=== PATIENT | male | born 1940 | race Caucasian/White ===

== ENCOUNTER 2021-05-27 16:08 | Inpatient (IN) | payer MEDICARE ==
[2021-05-27] MEDS ORDERED: Communication Order-Pharmacy FS SCH (18:03)
[2021-05-27 18:38] VITALS: BMI 25.2
[2021-05-27] MEDS ORDERED: Atorvastatin Calcium 40 MG TAB PO SCH (21:00)
[2021-05-27] MEDS ORDERED: Acetaminophen 325 MG TAB PO PRN (21:03)
[2021-05-27] MEDS ORDERED: Ondansetron PF 4 MG/2 ML Vial IVP PRN (21:03)
[2021-05-27] MEDS ORDERED: HumaLOG 300 UNITS/3 ML VIAL SC PRN ×2 (21:14→22:53)
[2021-05-27] MEDS ORDERED: Dextrose 5% in Water 1,000 ML IV PRN (21:14)
[2021-05-27] MEDS ORDERED: Dextrose 50% Abboject 50 ML SYRINGE SLOW IVP PRN (21:14)
[2021-05-27] MEDS ORDERED: Spironolactone 25 MG TAB PO SCH (21:30)
[2021-05-27] MEDS ORDERED: Carvedilol 3.125 MG TAB PO SCH (22:00)
[2021-05-27 22:38] LABS: SARS-CoV-2 NAA Rapid Test Not Detected (NotDetected)
[2021-05-28] MEDS ORDERED: CEFAZOLIN 2 GM in Premix Bag 1 BAG IVPB SCH (03:00)
[2021-05-28 04:54] LABS: #Eosinphils 0.1 thou/uL (0.0-0.7); #Lymphocytes 1.6 thou/uL (1.20-3.40); #Monocytes 0.9 thou/uL (0.11-0.59); #Neutrophils 5.5 thou/uL (1.40-6.50); %Eosinophils 1.7 % (0.0-10.0); %Lymphocytes 19.8 % (21.0-51.0); %Monocytes 10.7 % (0.0-10.0); %Neutrophils 67.8 % (42.0-75.0); Hemoglobin 13.2 g/dL (14.0-18.0); Mean Corpuscular HGB CONC 32.4 g/dL (32.0-36.0); Mean Corpuscular Hemoglobin 27.6 pg (27.0-31.0); Mean Corpuscular Volume 85.3 fL (78.0-98.0); Mean Platelet Volume 7.9 fL (7.4-10.4); Platelet Count 258 thou/uL (130-400); RBC Distribution Width 14.9 % (11.5-14.5); White Blood Cell (WBC) Count 8.1 thou/uL (4.8-10.8)
[2021-05-28 05:08] LABS: Anion Gap 14 mmol/L (10-20); BUN (Urea Nitrogen) 26 mg/dL (8.4-25.7); Calc. Creatinine Clearance 56 mL/min (70-130); Carbon Dioxide 28 mmol/L (23-31); Chloride 102 mmol/L (98-107); Glucose 191 mg/dL (83-110); Potassium 3.7 mmol/L (3.5-5.1); Sodium 140 mmol/L (136-145)
[2021-05-28] MEDS ORDERED: Carvedilol 3.125 MG TAB PO SCH ×2 (08:00)
[2021-05-28] MEDS ORDERED: Furosemide 40 MG/4 ML VIAL SLOW IVP SCH (09:00)
[2021-05-28] MEDS ORDERED: Empagliflozin 10 MG TAB PO SCH (09:00)
[2021-05-28] MEDS ORDERED: Albumin 5% 500 ML ONE ×2 (10:22→13:45)
[2021-05-28] MEDS ORDERED: Heparin 10,000 UNITS/1 ML VIAL 30,000 UNITS in Sodium Chloride 0.9% 1,000 ML FS SCH (10:30)
[2021-05-28] MEDS ORDERED: Sodium Chloride 0.9% 50 ML ONE (10:50)
[2021-05-28] MEDS ORDERED: ceFAZolin 2 GM/DEX 5% 100 ML BAG ONE (11:11)
[2021-05-28] MEDS ORDERED: Ketamine 50 MG/ML (10ML VIAL) ONE (11:11)
[2021-05-28] MEDS ORDERED: Midazolam HCl 5 mg/5 ml Vial ONE ×2 (11:26→13:16)
[2021-05-28] MEDS ORDERED: Fentanyl 250 MCG/5 ML VIAL ONE (11:26)
[2021-05-28] MEDS ORDERED: Heparin 30,000 units/30 ml VIAL ONE (11:41)
[2021-05-28] MEDS ORDERED: Magnesium Sulfate 1 GM/2 ML VIAL ONE (11:41)
[2021-05-28] MEDS ORDERED: Aminocaproic Acid 5 GM/20 ML VIAL ONE (11:41)
[2021-05-28] MEDS ORDERED: Nitroglycerin 50 MG/250 ML BOT ONE (11:41)
[2021-05-28] MEDS ORDERED: Lidocaine 2% PF 100 mg/5 ml Syringe ONE (11:41)
[2021-05-28] MEDS ORDERED: Heparin 5,000 UNITS/ML VIAL ONE (11:41)
[2021-05-28] MEDS ORDERED: Calcium Chloride 1 GM/10 ML Abboject SYRINGE ONE (11:41)
[2021-05-28] MEDS ORDERED: Mannitol 12.5 GM/50 ML ONE (11:41)
[2021-05-28] MEDS ORDERED: Sodium Bicarb 50 MEQ/50 ML Abboject 8.4% SYRINGE ONE (11:41)
[2021-05-28] MEDS ORDERED: Thrombin 5000 UNITS/5 ML VIAL ONE (11:41)
[2021-05-28] MEDS ORDERED: PROPOFOL 200 MG/20 ML VIAL ONE (11:41)
[2021-05-28] MEDS ORDERED: Cardioplegic Soln 1,000 ML BAG ONE (11:41)
[2021-05-28] MEDS ORDERED: Protamine Sulfate 250 MG/25 ML VIAL ONE (11:41)
[2021-05-28] MEDS ORDERED: Papaverine 60 MG/2 ML VIAL ONE (11:41)
[2021-05-28] MEDS ORDERED: Vecuronium 10 MG VIAL ONE (11:41)
[2021-05-28] MEDS ORDERED: Potassium Chloride 60 MEQ/30 ML VIAL ONE (11:41)
[2021-05-28] MEDS ORDERED: Insulin Regular 300 UNITS/3 ML VIAL ONE (12:07)
[2021-05-28] MEDS ORDERED: Iopamidol 0 ML ONE (12:39)
[2021-05-28] MEDS ORDERED: PHENYLEPHRINE-NS 100 MCG/ML 10 ML SYRINGE ONE (13:16)
[2021-05-28] MEDS ORDERED: Guaifenesin DM 100-10/5 ML UDCUP PO PRN (15:40)
[2021-05-28] MEDS ORDERED: Mag-Al 1200 mg/1200 mg/30 ML UDCUP PO PRN (15:40)
[2021-05-28] MEDS ORDERED: Hetastarch 6% 500 ML 500 ML IVPB PRN (15:40)
[2021-05-28] MEDS ORDERED: Bisacodyl 10 MG SUPP PR PRN (15:40)
[2021-05-28] MEDS ORDERED: Nitroglycerin 50 MG/250 ML BOT 250 ML IVPB PRN (15:40)
[2021-05-28] MEDS ORDERED: Bisacodyl 5 MG TAB PO PRN (15:40)
[2021-05-28] MEDS ORDERED: niCARdipine 25 MG in Sodium Chloride 0.9% 250 ML 240 ML IVPB PRN (15:40)
[2021-05-28] MEDS ORDERED: Acetaminophen 325 MG TAB PO PRN (15:40)
[2021-05-28] MEDS ORDERED: Fentanyl 100 MCG/2 ML VIAL SLOW IVP PRN (15:40)
[2021-05-28] MEDS ORDERED: traMADol HCl 50 MG TAB PO PRN (15:40)
[2021-05-28] MEDS ORDERED: hydrALAZINE 20 MG/ML VIAL SLOW IVP PRN (15:40)
[2021-05-28] MEDS ORDERED: Potassium Chloride 20 MEQ/100 ML PREMIX BAG IVPB PRN (15:40)
[2021-05-28] MEDS ORDERED: Post-Op Insulin Drip Protocol IVPB ONE (15:40)
[2021-05-28] MEDS ORDERED: DOPamine 400 MG/D5W 250 ML 250 ML IVPB PRN (15:40)
[2021-05-28] MEDS ORDERED: Ondansetron PF 4 MG/2 ML Vial IVP PRN (15:40)
[2021-05-28] MEDS ORDERED: HUMULIN R 100 UNITS in Sodium Chloride 0.9% 100 ML IVPB SCH (15:45)
[2021-05-28 15:46] LABS: Actual Bicarbonate (HCO3a) 21.8 mEq/L (22-28); Base Excess (BEa) -1.9 mEq/L (-2.0 to +3.0); CO2 Tension 33.5 mmHg (35.0-45.0); Calcium, Ionized (arterial) 1.15 mmol/L (1.12-1.30); Carboxyhemoglobin (COHb) 0.3 gm% (0.0-3.0); Hemoglobin (Hb) 12.1 g/dL (14.0-18.0); O2 Tension (PaO2), arterial 95.2 mmHg (> 60.0); Potassium - ABG Lab 3.73 mmol/L (3.70-5.30); Puncture Site Arterial Line; pH, Arterial 7.43 (7.35-7.45)
[2021-05-28 15:47] LABS: ALV-art Gradient 219.425 mmHg (0-20)
[2021-05-28 15:53] LABS: #Eosinphils 0.1 thou/uL (0.0-0.7); #Lymphocytes 0.9 thou/uL (1.20-3.40); #Neutrophils 14.5 thou/uL (1.40-6.50); %Basophils 0.1 % (0.0-1.0); %Eosinophils 0.3 % (0.0-10.0); %Lymphocytes 5.3 % (21.0-51.0); %Monocytes 5.9 % (0.0-10.0); %Neutrophils 88.4 % (42.0-75.0); Hemoglobin 11.6 g/dL (14.0-18.0); Mean Corpuscular HGB CONC 32.3 g/dL (32.0-36.0); Mean Corpuscular Hemoglobin 27.5 pg (27.0-31.0); Mean Platelet Volume 7.9 fL (7.4-10.4); Platelet Count 184 thou/uL (130-400); RBC Distribution Width 14.7 % (11.5-14.5); Red Blood Cell (RBC) Count 4.21 mill/uL (4.70-6.10); White Blood Cell (WBC) Count 16.4 thou/uL (4.8-10.8)
[2021-05-28 16:05] LABS: INR-International Normal Ratio 1.4; Prothrombin Time 17.3 sec (12.0-14.7)
[2021-05-28 16:06] LABS: PTT 36.5 sec (22.9-36.1)
[2021-05-28] MEDS ORDERED: Dextrose 5% in Water 1,000 ML IV PRN (16:15)
[2021-05-28] MEDS ORDERED: Dextrose 50% Abboject 50 ML SYRINGE SLOW IVP PRN (16:15)
[2021-05-28] MEDS ORDERED: Insulin Regular 300 UNITS/3 ML VIAL SC PRN (16:15)
[2021-05-28 16:19] LABS: Anion Gap 12 mmol/L (10-20); BUN (Urea Nitrogen) 21 mg/dL (8.4-25.7); Calc. Creatinine Clearance 66 mL/min (70-130); Calcium 7.9 mg/dL (7.8-10.44); Carbon Dioxide 23 mmol/L (23-31); Chloride 110 mmol/L (98-107); Glucose 168 mg/dL (83-110); Potassium 3.8 mmol/L (3.5-5.1); Sodium 141 mmol/L (136-145)
[2021-05-28 16:21] LABS: Potassium 3.7 mmol/L (3.5-5.1)
[2021-05-28] MEDS: Lactated Ringer's 1,000 ML IV SCH (16:24)
[2021-05-28] MEDS: Morphine 4 MG/ML VIAL SLOW IVP PRN ×2 (16:25→21:30)
[2021-05-28] MEDS ORDERED: Atorvastatin Calcium 10 MG TAB PO SCH (21:00)
[2021-05-28] MEDS ORDERED: Famotidine/PF 20 mg/2ml Vial SLOW IVP SCH (21:00)
[2021-05-28] MEDS ORDERED: Lantus 1000 UNITS/10 ML VIAL SC SCH (21:00)
[2021-05-28] MEDS: ceFAZolin Sodium/D5W 2 GM in Premix Bag 1 BAG IVPB SCH (21:34)
[2021-05-28 22:37] LABS: Actual Bicarbonate (HCO3a) 19.3 mEq/L (22-28); Base Excess (BEa) -4.6 mEq/L (-2.0 to +3.0); CO2 Tension 31.9 mmHg (35.0-45.0); Calcium, Ionized (arterial) 1.14 mmol/L (1.12-1.30); Carboxyhemoglobin (COHb) 0.2 gm% (0.0-3.0); Hemoglobin (Hb) 11.9 g/dL (14.0-18.0); O2 Tension (PaO2), arterial 101.7 mmHg (> 60.0)
[2021-05-28 22:38] LABS: ALV-art Gradient 143.625 mmHg (0-20); Puncture Site Arterial Line
[2021-05-29] MEDS: ceFAZolin Sodium/D5W 2 GM in Premix Bag 1 BAG IVPB SCH ×2 (04:35→12:59)
[2021-05-29] MEDS: Lactated Ringer's 1,000 ML IV SCH (04:40)
[2021-05-29 04:48] LABS: #Lymphocytes 1.1 thou/uL (1.20-3.40); #Monocytes 0.9 thou/uL (0.11-0.59); #Neutrophils 9.6 thou/uL (1.40-6.50); %Basophils 0.1 % (0.0-1.0); %Lymphocytes 9.1 % (21.0-51.0); %Monocytes 7.7 % (0.0-10.0); %Neutrophils 83.1 % (42.0-75.0); Hemoglobin 11.4 g/dL (14.0-18.0); Mean Corpuscular Hemoglobin 27.5 pg (27.0-31.0); Mean Corpuscular Volume 85.9 fL (78.0-98.0); Mean Platelet Volume 8.4 fL (7.4-10.4); Platelet Count 209 thou/uL (130-400); RBC Distribution Width 14.7 % (11.5-14.5); Red Blood Cell (RBC) Count 4.15 mill/uL (4.70-6.10); White Blood Cell (WBC) Count 11.5 thou/uL (4.8-10.8)
[2021-05-29 05:24] LABS: Anion Gap 13 mmol/L (10-20); BUN (Urea Nitrogen) 23 mg/dL (8.4-25.7); Calc. Creatinine Clearance 54 mL/min (70-130); Calcium 8.7 mg/dL (7.8-10.44); Carbon Dioxide 23 mmol/L (23-31); Chloride 111 mmol/L (98-107); Glucose 138 mg/dL (83-110); Potassium 4.3 mmol/L (3.5-5.1); Sodium 143 mmol/L (136-145)
[2021-05-29] MEDS ORDERED: Dextrose 50% Abboject 50 ML SYRINGE SLOW IVP PRN (08:30)
[2021-05-29] MEDS ORDERED: Dextrose 5% in Water 1,000 ML IV PRN (08:30)
[2021-05-29] MEDS: Potassium Chloride 10 MEQ TAB PO SCH (08:59)
[2021-05-29] MEDS: Furosemide 20 MG TAB PO SCH (10:00)
[2021-05-29] MEDS: Aspirin 325 MG TAB PO SCH (10:00)
[2021-05-29] MEDS: Polyethylene Glycol 3350 17 GM Packet PO SCH (10:02)
[2021-05-29] MEDS ORDERED: ceFAZolin Sodium/D5W 2 GM in Premix Bag 1 BAG IVPB SCH (14:00)
[2021-05-29] MEDS: HumaLOG 300 UNITS/3 ML VIAL SC PRN ×2 (18:24→21:43)
[2021-05-29] MEDS: Carvedilol 3.125 MG TAB PO SCH (18:24)
[2021-05-29] MEDS: Atorvastatin Calcium 10 MG TAB PO SCH (21:40)
[2021-05-30] MEDS: HumaLOG 300 UNITS/3 ML VIAL SC PRN ×4 (06:15→20:51)
[2021-05-30 09:25] LABS: Anion Gap 13 mmol/L (10-20); BUN (Urea Nitrogen) 19 mg/dL (8.4-25.7); Calc. Creatinine Clearance 59 mL/min (70-130); Calcium 8.5 mg/dL (7.8-10.44); Carbon Dioxide 22 mmol/L (23-31); Chloride 105 mmol/L (98-107); Glucose 189 mg/dL (83-110); Potassium 4.4 mmol/L (3.5-5.1); Sodium 136 mmol/L (136-145)
[2021-05-30] MEDS: Furosemide 20 MG TAB PO SCH (09:43)
[2021-05-30] MEDS: Aspirin 325 MG TAB PO SCH (09:43)
[2021-05-30] MEDS: Potassium Chloride 10 MEQ TAB PO SCH (09:43)
[2021-05-30] MEDS: Carvedilol 3.125 MG TAB PO SCH ×2 (09:43→16:52)
[2021-05-30] MEDS: Polyethylene Glycol 3350 17 GM Packet PO SCH (09:44)
[2021-05-30] MEDS: Amiodarone 450 MG, Admixture Fee 1 EACH in Dextrose 5% in Water 250 ML IVPB SCH ×2 (10:59→19:25)
[2021-05-30] MEDS: Atorvastatin Calcium 10 MG TAB PO SCH (20:43)
[2021-05-30] MEDS ORDERED: HumaLOG 300 UNITS/3 ML VIAL SC PRN (22:06)
[2021-05-30] MEDS ORDERED: Electrolyte Replacement Protocol 1 EACH FS SCH (22:15)
[2021-05-30] MEDS ORDERED: Bisacodyl 5 MG TAB PO PRN (22:21)
[2021-05-30] MEDS ORDERED: Zolpidem Tartrate 5 MG TAB PO PRN (22:21)
[2021-05-30] MEDS ORDERED: diphenhydrAMINE 25 MG CAP PO PRN (22:21)
[2021-05-30] MEDS ORDERED: Guaifenesin DM 100-10/5 ML UDCUP PO PRN (22:21)
[2021-05-30] MEDS ORDERED: Mineral Oil ENEMA PR PRN (22:21)
[2021-05-30] MEDS ORDERED: Nitroglycerin 0.4 MG TAB (25 Tab Bottle) SL PRN (22:21)
[2021-05-30] MEDS ORDERED: Mag-Al 1200 mg/1200 mg/30 ML UDCUP PO PRN (22:21)
[2021-05-30] MEDS ORDERED: Milk Of Magnesia 30 ML UDCUP PO PRN (22:21)
[2021-05-30] MEDS ORDERED: Bisacodyl 10 MG SUPP PR PRN (22:21)
[2021-05-30] MEDS ORDERED: Dextrose 50% Abboject 50 ML SYRINGE SLOW IVP PRN (22:30)
[2021-05-30] MEDS ORDERED: Dextrose 5% in Water 1,000 ML IV PRN (22:30)
[2021-05-30] MEDS ORDERED: Insulin Regular 300 UNITS/3 ML VIAL SC PRN (22:30)
[2021-05-30] MEDS ORDERED: Lantus 1000 UNITS/10 ML VIAL SC SCH (22:45)
[2021-05-31] MEDS: HumaLOG 300 UNITS/3 ML VIAL SC PRN ×3 (07:11→17:32)
[2021-05-31] MEDS: Potassium Chloride 10 MEQ TAB PO SCH (07:22)
[2021-05-31] MEDS: Carvedilol 3.125 MG TAB PO SCH ×2 (07:22→17:27)
[2021-05-31] MEDS: Furosemide 20 MG TAB PO SCH (08:55)
[2021-05-31] MEDS: Polyethylene Glycol 3350 17 GM Packet PO SCH (08:56)
[2021-05-31] MEDS: Empagliflozin 10 MG TAB PO SCH (08:56)
[2021-05-31] MEDS: Lantus 1000 UNITS/10 ML VIAL SC SCH (08:59)
[2021-05-31] MEDS ORDERED: Aspirin 325 mg Enteric Coated Tablet PO SCH (09:00)
[2021-05-31] MEDS ORDERED: Magnesium 2 GM/50 ML 2 GM in Premix Bag 1 BAG IVPB SCH (11:00)
[2021-05-31] MEDS: Amiodarone 450 MG, Admixture Fee 1 EACH in Dextrose 5% in Water 250 ML IVPB SCH (13:31)
[2021-05-31] MEDS: Furosemide 40 MG TAB PO SCH (15:37)
[2021-05-31] MEDS ORDERED: Lantus 1000 UNITS/10 ML VIAL SC SCH ×2 (21:00)
[2021-05-31] MEDS: Atorvastatin Calcium 10 MG TAB PO SCH (21:38)
[2021-06-01] MEDS: Amiodarone 450 MG, Admixture Fee 1 EACH in Dextrose 5% in Water 250 ML IVPB SCH ×2 (04:49→20:32)
[2021-06-01 05:19] LABS: #Eosinphils 0.2 thou/uL (0.0-0.7); #Lymphocytes 1.2 thou/uL (1.20-3.40); #Monocytes 1.2 thou/uL (0.11-0.59); #Neutrophils 6.6 thou/uL (1.40-6.50); %Basophils 0.1 % (0.0-1.0); %Eosinophils 1.7 % (0.0-10.0); %Lymphocytes 12.7 % (21.0-51.0); %Monocytes 12.9 % (0.0-10.0); %Neutrophils 72.6 % (42.0-75.0); Mean Corpuscular HGB CONC 31.6 g/dL (32.0-36.0); Mean Corpuscular Hemoglobin 26.8 pg (27.0-31.0); Mean Corpuscular Volume 84.8 fL (78.0-98.0); Mean Platelet Volume 8.9 fL (7.4-10.4); Platelet Count 224 thou/uL (130-400); Red Blood Cell (RBC) Count 4.09 mill/uL (4.70-6.10); White Blood Cell (WBC) Count 9.1 thou/uL (4.8-10.8)
[2021-06-01 05:25] LABS: Phosphorus 3.3 mg/dL (2.3-4.7)
[2021-06-01 05:26] LABS: Anion Gap 13 mmol/L (10-20); BUN (Urea Nitrogen) 29 mg/dL (8.4-25.7); Calc. Creatinine Clearance 50 mL/min (70-130); Calcium 8.7 mg/dL (7.8-10.44); Carbon Dioxide 26 mmol/L (23-31); Chloride 103 mmol/L (98-107); Glucose 185 mg/dL (83-110); Potassium 3.9 mmol/L (3.5-5.1); Sodium 138 mmol/L (136-145)
[2021-06-01] MEDS: HumaLOG 300 UNITS/3 ML VIAL SC PRN ×3 (07:11→17:20)
[2021-06-01] MEDS: Cyanocobalamin (Vitamin B-12) 1,000 MCG TAB PO SCH (08:45)
[2021-06-01] MEDS: Empagliflozin 10 MG TAB PO SCH (08:45)
[2021-06-01] MEDS: Polyethylene Glycol 3350 17 GM Packet PO SCH (08:45)
[2021-06-01] MEDS: Folic Acid 1 MG TAB PO SCH (08:46)
[2021-06-01] MEDS: Aspirin 81 mg Enteric Coated Tablet PO SCH (08:46)
[2021-06-01] MEDS: Potassium Chloride 10 MEQ TAB PO SCH (08:46)
[2021-06-01] MEDS: Multivit, Therapeutic 1 TAB PO SCH (08:46)
[2021-06-01] MEDS: Carvedilol 3.125 MG TAB PO SCH (08:46)
[2021-06-01] MEDS: Furosemide 40 MG TAB PO SCH (08:46)
[2021-06-01] MEDS: Lantus 1000 UNITS/10 ML VIAL SC SCH ×2 (08:47→20:52)
[2021-06-01] MEDS ORDERED: Carvedilol 3.125 MG TAB PO SCH (17:00)
[2021-06-01] MEDS: Carvedilol 6.25 MG TAB PO SCH (17:20)
[2021-06-01] MEDS: Atorvastatin Calcium 10 MG TAB PO SCH (20:51)
[2021-06-02] MEDS: Furosemide 40 MG TAB PO SCH (06:38)
[2021-06-02] MEDS: HumaLOG 300 UNITS/3 ML VIAL SC PRN ×2 (06:38→11:29)
[2021-06-02] MEDS ORDERED: Lantus 1000 UNITS/10 ML VIAL SC SCH (09:00)
[2021-06-02] MEDS: Cyanocobalamin (Vitamin B-12) 1,000 MCG TAB PO SCH (09:19)
[2021-06-02] MEDS: Aspirin 81 mg Enteric Coated Tablet PO SCH (09:19)
[2021-06-02] MEDS: Carvedilol 6.25 MG TAB PO SCH ×2 (09:19→17:57)
[2021-06-02] MEDS: Multivit, Therapeutic 1 TAB PO SCH (09:19)
[2021-06-02] MEDS: Empagliflozin 10 MG TAB PO SCH (09:19)
[2021-06-02] MEDS: Folic Acid 1 MG TAB PO SCH (09:19)
[2021-06-02] MEDS: Polyethylene Glycol 3350 17 GM Packet PO SCH (09:20)
[2021-06-02 09:32] LABS: Anion Gap 15 mmol/L (10-20); BUN (Urea Nitrogen) 33 mg/dL (8.4-25.7); Calc. Creatinine Clearance 47 mL/min (70-130); Calcium 8.9 mg/dL (7.8-10.44); Carbon Dioxide 27 mmol/L (23-31); Chloride 102 mmol/L (98-107); Glucose 155 mg/dL (83-110); Sodium 140 mmol/L (136-145)
[2021-06-02] MEDS: Amiodarone 200 MG TAB PO SCH ×2 (15:04→20:48)
[2021-06-02] MEDS: Atorvastatin Calcium 10 MG TAB PO SCH (20:48)
[2021-06-02] MEDS: Lantus 1000 UNITS/10 ML VIAL SC SCH (20:50)
[2021-06-03 05:00] LABS: Anion Gap 12 mmol/L (10-20); BUN (Urea Nitrogen) 32 mg/dL (8.4-25.7); Calc. Creatinine Clearance 52 mL/min (70-130); Calcium 8.7 mg/dL (7.8-10.44); Carbon Dioxide 27 mmol/L (23-31); Chloride 105 mmol/L (98-107); Glucose 106 mg/dL (83-110); Magnesium 2.1 mg/dL (1.6-2.6); Potassium 3.6 mmol/L (3.5-5.1); Sodium 140 mmol/L (136-145)
[2021-06-03] MEDS: Multivit, Therapeutic 1 TAB PO SCH (09:19)
[2021-06-03] MEDS: Aspirin 81 mg Enteric Coated Tablet PO SCH (09:19)
[2021-06-03] MEDS: Folic Acid 1 MG TAB PO SCH (09:19)
[2021-06-03] MEDS: Carvedilol 6.25 MG TAB PO SCH ×2 (09:20→16:07)
[2021-06-03] MEDS: Empagliflozin 10 MG TAB PO SCH (09:20)
[2021-06-03] MEDS: Furosemide 40 MG TAB PO SCH (09:20)
[2021-06-03] MEDS: Amiodarone 200 MG TAB PO SCH ×3 (09:20→20:52)
[2021-06-03] MEDS: Cyanocobalamin (Vitamin B-12) 1,000 MCG TAB PO SCH (09:20)
[2021-06-03] MEDS: Lantus 1000 UNITS/10 ML VIAL SC SCH ×2 (09:21→20:59)
[2021-06-03] MEDS: Polyethylene Glycol 3350 17 GM Packet PO SCH (09:21)
[2021-06-03] MEDS: HumaLOG 300 UNITS/3 ML VIAL SC PRN (16:19)
[2021-06-03] MEDS: Atorvastatin Calcium 10 MG TAB PO SCH (20:59)
[2021-06-04] MEDS: Multivit, Therapeutic 1 TAB PO SCH (09:32)
[2021-06-04] MEDS: Aspirin 81 mg Enteric Coated Tablet PO SCH (09:32)
[2021-06-04] MEDS: Lisinopril 2.5 MG TAB PO SCH (09:32)
[2021-06-04] MEDS: Carvedilol 6.25 MG TAB PO SCH ×2 (09:32→17:26)
[2021-06-04] MEDS: Folic Acid 1 MG TAB PO SCH (09:33)
[2021-06-04] MEDS: Cyanocobalamin (Vitamin B-12) 1,000 MCG TAB PO SCH (09:34)
[2021-06-04] MEDS: Amiodarone 200 MG TAB PO SCH ×2 (09:34→21:01)
[2021-06-04] MEDS: Empagliflozin 10 MG TAB PO SCH (09:36)
[2021-06-04] MEDS: Lantus 1000 UNITS/10 ML VIAL SC SCH ×2 (10:09→21:02)
[2021-06-04] MEDS: Polyethylene Glycol 3350 17 GM Packet PO SCH (10:10)
[2021-06-04] MEDS: HumaLOG 300 UNITS/3 ML VIAL SC PRN (13:36)
[2021-06-04 14:00] LABS: SARS-CoV-2 PCR by NAA Not Detected (NotDetected)
[2021-06-04] MEDS: Atorvastatin Calcium 10 MG TAB PO SCH (21:01)
[2021-06-05] MEDS ORDERED: Furosemide 40 MG TAB PO SCH (09:30)
[2021-06-05] MEDS: Lisinopril 2.5 MG TAB PO SCH (09:40)
[2021-06-05] MEDS: Furosemide 40 MG TAB PO SCH (09:40)
[2021-06-05] MEDS: Aspirin 81 mg Enteric Coated Tablet PO SCH (09:40)
[2021-06-05] MEDS: Polyethylene Glycol 3350 17 GM Packet PO SCH (09:40)
[2021-06-05] MEDS: Carvedilol 6.25 MG TAB PO SCH (09:41)
[2021-06-05] MEDS: Folic Acid 1 MG TAB PO SCH (09:41)
[2021-06-05] MEDS: Empagliflozin 10 MG TAB PO SCH (09:41)
[2021-06-05] MEDS: Cyanocobalamin (Vitamin B-12) 1,000 MCG TAB PO SCH (09:41)
[2021-06-05] MEDS: Amiodarone 200 MG TAB PO SCH (09:41)
[2021-06-05] MEDS: Multivit, Therapeutic 1 TAB PO SCH (09:41)
[2021-06-05] MEDS: Lantus 1000 UNITS/10 ML VIAL SC SCH (09:42)
[2021-06-05 12:08] VITALS: BP 101/54; TEMP 97.3
[2021-06-06] MEDS ORDERED: Furosemide 20 MG TAB PO SCH (07:30)
[2021-06-12] MEDS ORDERED: Amiodarone 200 MG TAB PO SCH (09:00)
== END 2021-06-05 15:14 | disposition home or self-care (01) | DRG 235 ==
LOC: 2NO 18:34 → CCU 05-28 10:41 → 2NO 05-31 19:06
PROVIDERS: ADMIT Hospitalist; ATTEND Internal Medicine
PROC: 02100Z9 Bypass Coronary Artery, One Artery from Left Internal Mammary, Open Approach (ICD-10-PCS; principal; 2021-05-28)
PROC: 021209W Bypass Coronary Artery, Three Arteries from Aorta with Autologous Venous Tissue, Open Approach (ICD-10-PCS; 2021-05-28)
PROC: 06BQ4ZZ Excision of Left Saphenous Vein, Percutaneous Endoscopic Approach (ICD-10-PCS; 2021-05-28)
PROC: 5A1221Z Performance of Cardiac Output, Continuous (ICD-10-PCS; 2021-05-28)
DX: I21.4 Non-ST elevation (NSTEMI) myocardial infarction (principal); I50.43 Acute on chronic combined systolic (congestive) and diastolic (congestive) heart failure; I13.0 Hypertensive heart and chronic kidney disease with heart failure and stage 1 through stage 4 chronic kidney disease, or unspecified chronic kidney disease; Z20.822 Contact with and (suspected) exposure to COVID-19; E11.22 Type 2 diabetes mellitus with diabetic chronic kidney disease; I25.10 Atherosclerotic heart disease of native coronary artery without angina pectoris; N18.30 Chronic kidney disease, stage 3 unspecified; E78.5 Hyperlipidemia, unspecified; I25.5 Ischemic cardiomyopathy; I48.91 Unspecified atrial fibrillation; E83.42 Hypomagnesemia; Z86.73 Personal history of transient ischemic attack (TIA), and cerebral infarction without residual deficits; Z79.4 Long term (current) use of insulin; Z79.899 Other long term (current) drug therapy
CPT/HCPCS: 36415; 36416; 36430; 71045; 80048; 82805; 83735; 84100; 85025; 85610; 85730; 86850; 86900; 86901; 93005; 93010; 93798; 94002; 94640; J0282; J1642; J1644; J1815; J2001; J2150; J2250; J2270; J2440; J2704; J2720; J3010; J3370; J3475; J3480; J3490; J7070; J7120; J7620; P9016; P9045; Q9967; S0017; S0028; U0002; U0003; U0005